=== PATIENT | male | born 1960 | race Caucasian/White ===

== ENCOUNTER 2016-12-20 05:37 | Emergency (ER) | payer MEDICAID ==
[~2016-12-20] VITALS: Ht 175.3 cm; Wt 77.0 kg
[2016-12-20 06:00] VITALS: BP 151/87
== END 2016-12-20 06:40 | disposition home or self-care (01) ==
LOC: ER 05:38
DX: M25.562 Pain in left knee (principal); I10 Essential (primary) hypertension; E78.00 Pure hypercholesterolemia, unspecified; F17.200 Nicotine dependence, unspecified, uncomplicated; F12.10 Cannabis abuse, uncomplicated; F14.10 Cocaine abuse, uncomplicated; Z95.818 Presence of other cardiac implants and grafts
CPT/HCPCS: 99283

== ENCOUNTER 2024-03-13 16:04 | Emergency (ER) | payer MEDICAID ==
[~2024-03-13] VITALS: Ht 172.7 cm; Wt 77.1 kg
[2024-03-13 16:13] VITALS: O2SAT 98
[2024-03-13] MEDS ORDERED: NAPR375T5 MT (17:27)
[2024-03-13] MEDS ORDERED: LIDOCAINE 5% PATCH TOP SCH (17:30)
[2024-03-13] MEDS: IBUPROFEN 600MG TABLET PO ONE (17:56)
[2024-03-13] MEDS: LIDOCAINE 5% PATCH TOP SCH (17:57)
[2024-03-13 17:58] VITALS: BP 135/69; PULSE 60; RESP 16; TEMP 98.7
== END 2024-03-13 18:49 | disposition home or self-care (01) ==
LOC: ER 16:04
DX: S13.4XXA Sprain of ligaments of cervical spine, initial encounter (principal); E78.00 Pure hypercholesterolemia, unspecified; I10 Essential (primary) hypertension; F14.10 Cocaine abuse, uncomplicated; F12.10 Cannabis abuse, uncomplicated; Z86.73 Personal history of transient ischemic attack (TIA), and cerebral infarction without residual deficits; V49.59XA Passenger injured in collision with other motor vehicles in traffic accident, initial encounter; Y93.89 Activity, other specified; Y92.89 Other specified places as the place of occurrence of the external cause; Y99.8 Other external cause status
CPT/HCPCS: 99283